=== PATIENT | female | born 1960 | race Caucasian/White ===

== ENCOUNTER 2016-10-25 10:49 | Emergency (ER) | payer OTHER ==
[~2016-10-25] VITALS: Ht 157.5 cm; Wt 71.2 kg
[2016-10-25] MEDS ORDERED: VITA50003 PO (11:02)
[2016-10-25] MEDS ORDERED: [UNRECOGNIZED DRUG - REMARK] PO (11:02)
[2016-10-25] MEDS ORDERED: LIPI20TA PO (11:02)
[2016-10-25] MEDS ORDERED: OXYB5TA PO (11:08)
[2016-10-25] MEDS ORDERED: ADACEL/BOOSTRIX VACCINE (DIPHTH/PERTUSS/ACELL/TETANUS)0.5ML SYR (90715) IM ONE (12:15)
[2016-10-25] MEDS ORDERED: AUGMENTIN 875 MG TAB PO ONE (12:15)
[2016-10-25] MEDS ORDERED: ACETAMINOPHEN TAB 650MG DOSE (2X325MG) PO ONE (12:15)
[2016-10-25] MEDS ORDERED: TETANUS/DIPHTHERIA TOX ADSORB ADULT 0.5ML SYR/VIAL (90714) IM ONE (12:15)
[2016-10-25] MEDS ORDERED: AUGM875T27 PO (12:42)
[2016-10-25] MEDS ORDERED: TYLE325T5 PO (12:42)
[2016-10-25 12:48] VITALS: BP 161/83
--- NOTE | 2016-10-25 13:41 | REP ---
RIGHT HAND, FOUR VIEWS: HISTORY: Trauma. There is no acute fracture or dislocation. There is narrowing of the intermediate and distal interphalangeal joint space with associated osteophyte formation. IMPRESSION: Degenerative change as described above. Signed by Gray Montgomery MD 10/25/2016 01:45 P
== END 2016-10-25 13:00 | disposition home or self-care (01) ==
LOC: M ED 11:27
DX: S51.851A Open bite of right forearm, initial encounter (principal); S51.852A Open bite of left forearm, initial encounter; W54.0XXA Bitten by dog, initial encounter; Y92.89 Other specified places as the place of occurrence of the external cause; Y93.89 Activity, other specified; Y99.8 Other external cause status; Z88.2 Allergy status to sulfonamides; Z91.041 Radiographic dye allergy status; M77.30 Calcaneal spur, unspecified foot; Z85.44 Personal history of malignant neoplasm of other female genital organs

== ENCOUNTER → 2017-06-06 | Outpatient (CLI) | payer OTHER | LOC: M RAD 08:43 | DX: Z12.31 Encounter for screening mammogram for malignant neoplasm of breast (principal) | CPT/HCPCS: 77067 ==

== ENCOUNTER → 2018-01-26 | Outpatient (CLI) | payer OTHER ==
[2018-01-26 15:01] LABS: IMMUNOGLOBULIN G 656 MG/DL (681-1648)
[2018-01-29 08:45] LABS: I001-IGE HONEYBEE <0.10 kU/L (Class 0); I003-IGE YELLOW JACKET <0.10 kU/L (Class 0); I205-IGE BUMBLE BEE <0.10 kU/L (Class 0)
== END ==
LOC: M LAB 11:25
DX: J30.89 Other allergic rhinitis (principal); Z91.030 Bee allergy status
CPT/HCPCS: 82784

== ENCOUNTER → 2021-02-17 | Outpatient (CLI) | payer OTHER ==
[~2021-02-17] MED LIST: AUGM875T28 PO; LIPI20TA PO; OXYB5TAB10 PO; TYLE325T5 PO; VITA50005 PO; [UNRECOGNIZED DRUG - REMARK] PO
--- NOTE | 2021-02-17 15:16 | REPMRS ---
Patient History The patient states she has not had a clinical breast exam in over a year. Patient has history of anal cancer at age 59 and has history of endometrial cancer at age 29. No known family history of cancer. Patient states no breast complaints today. Patient has signed MRS History Sheet. Digital Woman Screen Mammo: February 17, 2021 - Exam #: [id number] Bilateral CC and MLO view(s) were taken. Technologist: Susan Shepherd Technologist Prior study comparison: June 06, 2017, [facility] 04, 2015, [facility] bilat[facility]. FINDINGS: There are scattered fibroglandular densities. Screening. Digital screening (2D) mammography was performed bilaterally in the CC and MLO projections. Additionally, breast tomosynthesis (3D mammography) was performed bilaterally in the CC and MLO projections. Todays exam was compared to the prior exam/exams. By history, the patient has no complaints of a palpable breast abnormality or other significant breast complaints. The breasts are unchanged in size and shape. There are no jeremías-soft tissue densities or spiculated masses. There is no internal architectural distortion.Once again, stable benign appearing calcifications are seen.There are no suspicious jeremías-calcific clusters. Skin thickening or nipple retraction is not present. IMPRESSION: BI-RADS Category 2- Benign Findings. There is no evidence of malignant alteration of the breasts. Followup examination recommended in one year. The [place] volumetric breast density category is B, there are scattered areas of fibroglandular densities. This mammogram was read with the assistance [facility],an FDA approved computer aided detection system for mammography. The lifetime Tyrer-Cuzick score is 8.5 % Negative x-ray reports should not delay surgical consultation if a dominant or clinically suspicious mass is present. Not all breast cancers can be identified by mammography. Therefore, we recommend that you continue to perform regular breast self-examination and physical examination and then promptly contact your physician of any concerns or changes. Adenosis and dense breasts may obscure an underlying neoplasm. Assessment: BI-RADS/ACR category 2 mammogram. Benign Findings. Recommendation Routine screening mammogram of both breasts in 1 year. Electronically Signed By: Nilson Jeffrey DO 02/17/21 [id number]
== END ==
LOC: M WHC 14:29
PROVIDERS: ATTEND Physician Assistant Medical
DX: Z12.31 Encounter for screening mammogram for malignant neoplasm of breast (principal)

== ENCOUNTER → 2022-01-19 | Outpatient (REF) | LOC: M RAD 07:09 | PROVIDERS: ATTEND Physician Assistant Medical | DX: Z00.00 Encounter for general adult medical examination without abnormal findings (principal) ==

== ENCOUNTER → 2025-01-24 | Outpatient (CLI) | payer OTHER ==
[~2025-01-24] MED LIST changes: -OXYB5TAB10 PO; +OXYB5TAB14 PO
== END ==
LOC: M WHC 11:07
PROVIDERS: ATTEND Internal Medicine
DX: Z12.31 Encounter for screening mammogram for malignant neoplasm of breast (principal); R92.313 Mammographic fatty tissue density, bilateral breasts